=== PATIENT | female | born 1950 | race Caucasian/White ===

== ENCOUNTER 2018-03-09 09:44 | Inpatient (IN) ==
[2018-03-09] MEDS ORDERED: Acetaminophen 325 MG Tablet PO PRN ×2 (16:40→17:00)
[2018-03-09] MEDS ORDERED: Sod Chloride 0.9% Inj 1,000 ML IV.CONT PRN (17:00)
[2018-03-09] MEDS ORDERED: Gelatin 12 MM/7 MM Topical Foam TOPICAL PRN (17:00)
[2018-03-09] MEDS ORDERED: Albumin Human 25% Inj 100 ML IV.SIG PRN (17:00)
[2018-03-09] MEDS ORDERED: Heparin 10,000 UNITS/10 ML Vial (for IV use) OTHER PRN ×2 (17:00)
[2018-03-09] MEDS ORDERED: Azithromycin Inj 500 MG in Sodium Chlor 0.9% Inj 250 ML IV.SIG SCH (17:00)
[2018-03-09] MEDS ORDERED: Sod Chloride 0.9% Inj 1,000 ML OTHER PRN ×2 (17:00)
--- NOTE | 2018-03-09 17:51 | P.HPIM ---
History of Present Illness Primary Care Physician: UNKNOWN Chief Complaint: Shortness of breath History of Present Illness: Mrs. Henderson is a 67-year-old female. She has COPD at baseline. She continues to smoke about 1/2 pack/day. She says starting 3 days ago she was having worsening shortness of breath. If may be possible as she cites 3 sick contacts. No other complaints today. No chest pain. She did miss her dialysis 2 days ago and this could be contributory to her shortness of breath. However, clinically she does not have a significant amount of fluid overload. At baseline she does not use oxygen. At this point she is oxygen dependent due to her COPD exacerbation. No nausea, vomiting, or fever. Review of Systems Constitutional: No fevers, no chills no night sweats, no fatigue, no weakness Eyes: No eye pain, no blurry vision, no loss of vision ENT: No sore throat, no ear pain, no rhinorrhea Cardiovascular: No chest pain, no tachycardia, no palpitations, no syncope Respiratory: No wheezing, no cough, shortness of breath Gastrointestinal: No abdominal pain, no black tarry stools, no bright red blood per rectum, no vomiting, no diarrhea Musculoskeletal: No joint pain, no muscle cramps, no stiffness Integumentary: No rash, no ulcers, no drainage Neurologic: No sensory loss, no loss of motor function, no dizziness Psychiatric: No behavioral changes, no hallucinations, no suicidal ideations [facility] Medical History Medical History Cirrhosis (Acute) Diabetes (Acute) GERD (gastroesophageal reflux disease) (Acute) History of COPD (Acute) Hypertension (Acute) Hypothyroidism (Acute) Surgical History Surgical History History of quadruple bypass (Acute) Hx of section (Acute) Hx of cholecystectomy (Acute) Hx of heart artery stent (Acute) Hx of tonsillectomy (Acute) Hx of umbilical hernia repair (Acute) S/P TIPS (transjugular intrahepatic portosystemic shunt) (Acute) Family History Family History Other Osteoarthritis Social History Social History Substance History: No History of Abuse Second Hand Smoke Exposure: Yes Smoking Status: Current every day smoker Tobacco Type: Cigarettes How Often Do You Have a Drink Containing Alcohol: Never Medications and Allergies Allergies Allergy/AdvReac Type Severity Reaction Status Date / Time Penicillins Allergy Hives Verified 03/09/18 10:24 artifical sweetner Allergy Swelling Uncoded 03/09/18 10:24 of Lip/Tongue/Throat Home Medications Medication Instructions Recorded Confirmed Type B complex-vitamin C-folic acid 1 tab PO DAILY 03/09/18 03/09/18 History [Dialyvite 800] Caltrate Gummy Bites 600 mg PO BID 03/09/18 03/09/18 History carvedilol 6.25 mg PO BID 03/09/18 03/09/18 History cetirizine [Zyrtec] 10 mg PO DAILY 03/09/18 03/09/18 History ciprofloxacin HCl [Cipro] 500 mg PO WEEKLY 03/09/18 03/09/18 History cyclobenzaprine 5 mg PO TID PRN 03/09/18 03/09/18 History doxepin 10 mg PO DAILY PRN 03/09/18 03/09/18 History hydralazine 25 mg PO AC DINNER 03/09/18 03/09/18 History insulin detemir U-100 [Levemir 60 mg SUBCUT HS 03/09/18 03/09/18 History FlexTouch U-100 Insuln] levothyroxine 88 mcg PO DAILY 03/09/18 03/09/18 History magnesium 250 mg PO TID 03/09/18 03/09/18 History pantoprazole [Protonix] 40 mg PO DAILY 03/09/18 03/09/18 History pravastatin 10 mg PO HS 03/09/18 03/09/18 History Active Medications: Active Medications Acetaminophen (Tylenol) 650 mg PO Q4H PRN PRN Reason: Temp > 100.4 Acetaminophen (Tylenol) 650 mg PO UNSCH PRN PRN Reason: SEE LABEL COMMENTS Al Hydroxide/Mg Hydroxide (Milk Of Silverio Bach) 30 ml PO Q12H PRN PRN Reason: Mild Constipation Albuterol (Albuterol Neb (Prn)) 2.5 mg NEB Q2HR NEB PRN PRN Reason: SHORTNESS OF BREATH Albuterol (Duoneb Neb (Karen)) 1 ampul NEB Q6HR WHILE AWAKE NEB KAREN Clonidine HCl (Catapres) 0.1 mg PO UNSCH PRN PRN Reason: SEE LABEL COMMENTS Diphenhydramine HCl (Benadryl) 25 mg PO UNSCH PRN PRN Reason: SEE LABEL COMMENTS Epoetin Kaveh (Epogen Inj) 8,000 unit SQ MoWeFr KAREN Gelatin (Gelfoam 12 Mm/7 Mm Topical) 1 foam TOPICAL PRN PRN PRN Reason: help stop bleeding from site Gentamicin Sulfate (Gentamicin Inj) 20 mg OTHER WITH DIALYSIS PRN PRN Reason: Dwell Gentamycin Lock Heparin Sodium (Porcine) (Heparin Inj) 8,000 units OTHER WITH DIALYSIS PRN PRN Reason: for machine prime Heparin Sodium (Porcine) (Heparin Inj) 1,000 units OTHER WITH DIALYSIS PRN PRN Reason: Dwell Heparin to Fill Catheter Azithromycin 500 mg/ Sodium (Chloride) 250 mls @ 250 mls/hr IV.SIG Q24H KAREN Albumin Human (Flexbumin 25% Inj) 100 mls @ 60 mls/hr IV.SIG WITH DIALYSIS PRN PRN Reason: hypotension / volume replace Sodium Chloride (Ns Inj) 1,000 mls @ 0 mls/hr OTHER .Q0M PRN PRN Reason: for prime and rinse back Sodium Chloride (Ns Inj) 1,000 mls @ 200 mls/hr OTHER .Q5H PRN PRN Reason: for dialyzer flush PRN Sodium Chloride (Ns Inj) 1,000 mls @ 0 mls/hr IV.CONT .Q0M PRN PRN Reason: hypotension / volume replace Mannitol (Mannitol Inj) 12.5 gm IV.PUSH UNSCH PRN PRN Reason: hypotension / volume replace Nitroglycerin (Nitrostat Sl) 0.4 mg SL Q5M PRN PRN Reason: CHEST PAIN Ondansetron HCl (Zofran Inj) 4 mg IV.PUSH Q6H PRN PRN Reason: NAUSEA OR VOMITING Prednisone (Deltasone) 40 mg PO BID KAREN Sodium Chloride (Ns Flush) 2 ml IV.FLUSH BID KAREN Sodium Chloride (Ns Flush) 2 ml IV.FLUSH PRN PRN PRN Reason: FLUSH AFTER USING IV ACCESS Sodium Chloride (Ns Flush) 2 ml IV.FLUSH BID KAREN Sodium Chloride (Ns Flush) 2 ml IV.FLUSH PRN PRN PRN Reason: FLUSH AFTER USING IV ACCESS Sodium Chloride (Ns Flush) 5 ml IV.FLUSH PRN PRN PRN Reason: flush each lumen during HD Physical Exam Vital signs: Last Vital Signs Temp 98.5 F 03/09/18 16:03 Pulse 78 03/09/18 16:03 Resp 20 03/09/18 16:03 BP 148/67 H 03/09/18 16:03 Pulse Ox 97 03/09/18 16:03 Intake & Output 03/07/18 03/08/18 03/09/18 03/10/18 06:59 06:59 06:59 06:59 Weight 107.1 kg Narrative: GENERAL: NAD, A&Ox3 HEAD: Normocephalic. NECK: Supple, trachea midline. No lymphadenopathy. EYES: No scleral icterus. No injection or drainage. CARDIOVASCULAR: Regular rate and rhythm without murmurs, gallops, or rubs. RESPIRATORY: Breath sounds equal bilaterally. No accessory muscle use. Trace crackles at bases, wheezing at bases. GASTROINTESTINAL: Abdomen soft, non-tender, nondistended. MUSCULOSKELETAL: No cyanosis, or edema. SKIN: Warm and dry. NEURO: No focal neurological deficits. Caprini VTE Risk Assessment Caprini VTE Risk Assessment: No/Low Risk (score <= 1) Caprini Risk Assessment Model: Point Value = 1 Point Value = 2 Point Value = 3 Point Value = 5 Age 41-60 Minor surgery BMI > 25 kg/m2 Swollen legs Varicose veins or History of unexplained or recurrent spontaneous Oral contraceptives or hormone replacement Sepsis (< 1 month) Serious lung disease, including pneumonia (< 1 month) Abnormal pulmonary function Acute myocardial infarction Congestive heart failure (< 1 month) History of inflammatory bowel disease Medical patient at bed rest Age 61-74 Arthroscopic surgery Major open surgery (> 45 min) Laparoscopic surgery (> 45 min) Malignancy Confined to bed (> 72 hours) Immobilizing plaster cast Central venous access Age >= 75 History of VTE Family history of VTE Factor V Leiden Prothrombin [id number] Lupus anticoagulant Anticardiolipin antibodies Elevated serum homocysteine Heparin-induced thrombocytopenia Other congenital or acquired thrombophilia Stroke (< 1 month) Elective arthroplasty Hip, pelvis, or leg fracture Acute spinal cord injury (< 1 month) Prophylaxis Regimen: Total Risk Factor Score Risk Level Prophylaxis Regimen 0-1 Low Early ambulation 2 Moderate Order ONE of the following: *Sequential Compression Device (SCD) *Heparin 5000 units SQ BID 3-4 Higher Order ONE of the following medications: *Heparin 5000 units SQ TID *Enoxaparin/Lovenox 40 mg SQ daily (WT < 150 kg, CrCl > 30 mL/min) *Enoxaparin/Lovenox 30 mg SQ daily (WT < 150 kg, CrCl > 10-29 mL/min) *Enoxaparin/Lovenox 30 mg SQ BID (WT < 150 kg, CrCl > 30 mL/min) AND/OR *Sequential Compression Device (SCD) 5 or more Highest Order ONE of the following medications: *Heparin 5000 units SQ TID (Preferred with Epidurals) *Enoxaparin/Lovenox 40 mg SQ daily (WT < 150 kg, CrCl > 30 mL/min) *Enoxaparin/Lovenox 30 mg SQ daily (WT < 150 kg, CrCl > 10-29 mL/min) *Enoxaparin/Lovenox 30 mg SQ BID (WT < 150 kg, CrCl > 30 mL/min) AND *Sequential Compression Device (SCD) Assessment and Plan Plan 67-year-old female admitted secondary to COPD exacerbation COPD exacerbation Continue oxygen supplements as needed Schedule duo nebs When necessary albuterol Azithromycin Systemic steroids Follow for improvement in respiratory status Follow for improvement in exertional tolerance next End-stage renal disease Dialysis dependent Missed dialysis Patient in dialysis when seen She will receive another dialysis tomorrow Monitor renal function Follow clinically Diabetes mellitus type 2 Follow blood sugars Insulin sliding scale Diabetic diet Hypertension Continue baseline treatment Follow blood pressures Adjust treatments as needed Hypothyroidism Continue baseline treatments Follow-up as an outpatient Gastroesophageal reflux disease Continue baseline treatments H&P: Quality VTE Deep Vein Thrombosis/Pulmonary Embolism Present on Admission: No
[2018-03-09] MEDS ORDERED: Dextrose 50% in Water 50 ML Vial IV.PUSH PRN (17:53)
--- NOTE | 2018-03-09 18:13 | MB ---
cc: Hector Benavides MD DATE: 03/09/2018 REASON FOR CONSULTATION: End-stage renal disease management. HISTORY OF PRESENT ILLNESS: This is a 67-year-old female with history of end-stage renal disease. She is on dialysis in [place] and follows up with Dr. Higginbotham on a Sunday, Sunday, Sunday dialysis schedule. She has been on dialysis for approximately 2 years and uses a right upper arm AV graft for AV access. The patient got a full treatment on Sunday. However, started to feel somewhat fatigued after her treatment. She developed some cough and shortness of breath. She has a longstanding history of COPD and is a current 1/2-lqpy-orf-day smoker. The patient believes she may have caught some sort of respiratory infection and developed shortness of breath. She missed her hemodialysis treatment yesterday and went to the emergency room in [place] earlier today. There, she was assessed and thought to have possible pneumonia versus COPD exacerbation. In addition, she had missed her last hemodialysis treatment. She was transferred here to the [facility]. At this time, the patient is resting in bed comfortably. We have restarted dialysis here, and she is tolerating dialysis via her right upper arm AV graft. She reports she is having some improvement in her shortness of breath, and she did receive 2 respiratory treatments over at [place] ER. At this time, she is resting comfortably and has no acute complaints. Nephrology was consulted for further evaluation. REVIEW OF SYSTEMS: The patient denies any chest pains. She does have some mild shortness of breath with chronic underlying COPD. She did have some cough with sputum earlier as well. No nausea, no vomiting, no diarrhea. No chest pains. No dysuria, no headaches. No dizziness. No loss of consciousness. Otherwise, review of systems negative. PAST MEDICAL HISTORY: Cirrhosis secondary to medications, diabetes with insulin dependence, GERD, COPD, current 1/1-bwbs-myp-day smoker, hypertension, hypothyroidism. PAST SURGICAL HISTORY: Quadruple bypass, , cholecystectomy, coronary stent, tonsillectomy, umbilical hernia repair, TIPS surgery for cirrhosis, right upper arm AV graft. SOCIAL HISTORY: The patient is a current 1/6-rxac-put-day smoker. Previous social alcohol use. No drug use. The patient lives at home in [place]. FAMILY HISTORY: Noncontributory. PHYSICAL EXAMINATION: VITAL SIGNS: At time of evaluation, temperature 98.5, pulse 78, respiratory rate 20, blood pressure 148/67, respiratory rate 20, pulse oximetry 97% on 3L nasal cannula. GENERAL: Awake, alert, oriented. NECK: Soft, supple. CARDIAC: Regular rate and rhythm. PULMONARY: Mild wheezes. Decreased breath sounds at bases. ABDOMEN: Soft, nontender, nondistended. EXTREMITIES: No edema. Right upper arm AV graft positive thrill. LABORATORY FINDINGS: White count 6.8, hemoglobin 8.9, hematocrit 27, platelet count of 84. Sodium 143, potassium 4.3, chloride 109, bicarbonate 26, BUN 61, creatinine 4.1, glucose 137. ASSESSMENT AND PLAN: 1. End-stage renal disease. The patient is on hemodialysis Sunday, Sunday, and Sunday. She missed 1 treatment secondary to shortness of breath at home. She is being seen on dialysis here today and is tolerating dialysis well. We will do ultrafiltration as tolerated. At this time, her volume status and electrolytes are otherwise stable. We will do ultrafiltration as tolerated. Given the holiday schedule, we will do hemodialysis again on Sunday and then next dialysis on Sunday. If the patient is discharged after treatment tomorrow, she can continue outpatient dialysis on Sunday as an outpatient. We will continue to monitor. Continue renally dose medications and antibiotics. 2. The patient is a current 1/8-nkqz-bqw-day smoker. Encouraged the patient to quit smoking. She is a long-term smoker and has cut down from 1-1/2 packs per day in the past. She did receive 2 breathing treatments earlier in the ER for apparent chronic obstructive pulmonary disease exacerbation. Continue followup with primary team. Chest x-ray was negative for any other findings. However, the patient has had some cough with sputum. Continue to monitor with antibiotics as needed. 3. Hypertension. Blood pressure is stable. Continue with medication. 4. Insulin-dependent diabetes. Continue with medications. 5. Anemia. The patient with hemoglobin 8.9. Continue to monitor. We will give Epogen as needed. 6. History of coronary artery disease, status post coronary artery bypass grafting. Continue with medications. No cardiac symptoms at this time. 7. Cirrhosis. The patient has a history of cirrhosis with previous transjugular intrahepatic portosystemic shunt surgery. She reports she had been under consideration for liver transplant. However, she refused. She has slightly low platelets at 84. Continue to monitor. Otherwise stable. MD BRIAN Bhatti/gaston , 05:21 PM , 05:29 PM
[2018-03-09] MEDS ORDERED: Insulin Detemir Inj 1,000 UNIT/10 ML Vial SQ SCH (21:00)
[2018-03-09] MEDS: predniSONE 20 MG Tablet PO SCH (21:31)
[2018-03-09] MEDS: Carvedilol 6.25 MG Tablet PO SCH (21:31)
[2018-03-09] MEDS: Magnesium Oxide 400 MG Tablet PO SCH (21:57)
[2018-03-09] MEDS: Insulin NovoLOG Aspart Correctional Sugar Inj SQ SCH (23:46)
[2018-03-10 05:38] LABS: Baso % (Auto) 0.1 % (0.0-2.0); Hematocrit 23.7 % (35.0-46.0); Hemoglobin 8.1 gm/dL (11.6-15.3); Lymph # (Auto) 0.5 th/mm3 (1.0-4.8); Lymph % (Auto) 14.2 % (9.0-44.0); Mean Corpuscular HGB Conc 34.2 % (32.0-36.0); Mean Corpuscular Hemoglobin 31.9 pg (27.0-34.0); Mean Corpuscular Volume 93.3 fL (80.0-100.0); Mean Platelet Volume 8.3 fL (7.0-11.0); Mono # (Auto) 0.2 th/mm3 (0.0-0.9); Mono % (Auto) 4.5 % (0.0-8.0); Neut # (Auto) 3.1 th/mm3 (1.8-7.7); Neut % (Auto) 81.2 % (16.0-70.0); Platelet Count 73 th/mm3 (150-450); Red Blood Count 2.54 mil/mm3 (4.00-5.30); Red Cell Distribution Width 17.6 % (11.6-17.2); White Blood Count 3.9 th/mm3 (4.0-11.0)
[2018-03-10] MEDS ORDERED: Levothyroxine 88 MCG Tablet PO SCH (06:00)
[2018-03-10 06:05] LABS: Alanine Aminotransferase 15 U/L (10-53); Albumin 2.7 g/dL (3.4-5.0); Anion Gap 10 meq/L (5-15); Aspartate Aminotransferase 21 U/L (15-37); Blood Urea Nitrogen 47 mg/dL (7-18); Calcium 7.5 mg/dL (8.5-10.1); Carbon Dioxide 28.5 meq/L (21.0-32.0); Chloride 101 meq/L (98-107); Glomerular Filtration Rate 12 mL/min (>89); Glucose,Random 299 mg/dL (74-106); Magnesium 2.1 mg/dL (1.5-2.5); Potassium 3.9 meq/L (3.5-5.1); Sodium 139 meq/L (136-145)
[2018-03-10 06:06] LABS: Alkaline Phosphatase 154 U/L (45-117); Total Protein 6.3 g/dL (6.4-8.2)
[2018-03-10] MEDS ORDERED: LEVOTHYROXINE 88 MCG PO SCH (09:00)
[2018-03-10] MEDS ORDERED: Vitamin B Complex/Vit C/Folic Tablet PO SCH (09:00)
--- NOTE | 2018-03-10 10:33 | P.PNNP ---
Subjective Interval history: no acute complaints, seen on dialysis and tolerating it well Physical Exam Vital signs: Vital Signs 03/09/18 16:03 03/09/18 20:00 03/09/18 22:03 Temperature 98.5 F 97.4 F L Pulse Rate 78 82 84 Respiratory Rate 20 20 16 Blood Pressure 148/67 H 133/62 Pulse Oximetry 97 99 97 03/09/18 23:50 03/10/18 00:00 03/10/18 04:00 Temperature 97.4 F L 97.0 F L Pulse Rate 87 78 Respiratory Rate 20 20 20 Blood Pressure 108/57 L 113/54 L Pulse Oximetry 98 99 03/10/18 07:52 Temperature Pulse Rate 80 Respiratory Rate 16 Blood Pressure Pulse Oximetry 97 Intake & Output 03/09/18 03/10/18 03/10/18 18:59 06:59 18:59 Intake Total 250 / 250 Output Total 1500 / 1500 Balance -1250 / -1250 Weight 107.1 kg Intake: IV 250 / 250 Azithromycin Inj 500 MG In NS 250 / 250 Inj 250 ML @ 250 mls/hr IV.SIG Q24H KURTIS Rx#:[id number] Output: Hemodialysis Amount 1500 / 1500 Other: Date of Last Bowel Movement 03/09/18 Weight On Admission 107.1 kg - Constitutional no acute distress - Routine HEENT Exam Head: Present: normocephalic Eye: Present: EOMI ENT: Present: mucous membranes moist - Routine Neck Exam Present: supple - Routine Respiratory Exam Present: decreased breath sounds - Routine Cardiovascular Exam Present: RRR - Routine Abdominal Exam Present: soft - Routine Skin Exam Present: intact - Routine Neurological Exam Present: alert, oriented X3 - Routine Psychiatric Exam Present: normal affect Assessment and Plan - Assessment (1) ESRD (end stage renal disease) on dialysis Code(s): N18.6 - End stage renal disease; Z99.2 - Dependence on renal dialysis Status: Acute Plan: ESRD - MWF schedule outpatient. Missed HD Sunday - HD done yesterday with 1.5L UF HD again today, goal 1.5 L UF. Tolerating HD well. With holiday schedule, next HD Sunday (outpatient if D/C) Feeling better today, would like to go home soon if able. (2) COPD (chronic obstructive pulmonary disease) Code(s): J44.9 - Chronic obstructive pulmonary disease, unspecified Status: Acute Plan: Current smoker, encouraged cessation on steroids, azithromycin - feeling better today (3) HTN (hypertension) Code(s): I10 - Essential (primary) hypertension Status: Acute (4) Diabetes Code(s): E11.9 - Type 2 diabetes mellitus without complications Status: Acute Plan: continue insulin (5) Anemia Code(s): D64.9 - Anemia, unspecified Status: Acute Plan: epogen with dialysis (6) Cirrhosis Code(s): K74.60 - Unspecified cirrhosis of liver Status: Acute Plan: stable, s/p TIPS, refused transplant.
[2018-03-10] MEDS: Insulin NovoLOG Aspart Correctional Sugar Inj SQ SCH ×2 (12:19→13:40)
[2018-03-10] MEDS: predniSONE 20 MG Tablet PO SCH (12:30)
[2018-03-10] MEDS: Magnesium Oxide 400 MG Tablet PO SCH (12:30)
[2018-03-10] MEDS: Carvedilol 6.25 MG Tablet PO SCH (12:31)
[2018-03-10 12:46] VITALS: BP 147/59; PULSE 75; TEMP 98.8
--- NOTE | 2018-03-10 13:34 | P.DS ---
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 Admit from [facility] with COPD exacerbation. Notified:: Service Spoke with:: BRADEN Date Notified:: 03/09/18 Time Notified:: 17:07 Ordering Provider: TORITO Brief History from admission: Mrs. Henderson is a 67-year-old female. She has COPD at baseline. She continues to smoke about 1/2 pack/day. She says starting 3 days ago she was having worsening shortness of breath. If may be possible as she cites 3 sick contacts. No other complaints today. No chest pain. She did miss her dialysis 2 days ago and this could be contributory to her shortness of breath. However, clinically she does not have a significant amount of fluid overload. At baseline she does not use oxygen. At this point she is oxygen dependent due to her COPD exacerbation. No nausea, vomiting, or fever. DS: Diagnosis Discharge Diagnosis (1) ESRD (end stage renal disease) on dialysis: Status: Acute (2) COPD (chronic obstructive pulmonary disease): Status: Acute (3) HTN (hypertension): Status: Acute (4) Diabetes: Status: Acute (5) Anemia: Status: Acute (6) Cirrhosis: Status: Acute DS: Summary Patient was admitted and seen by nephrology, and sent for dialysis because she had missed her scheduled dialysis, she was dialyzed today as well. Tolerated the procedure well, had improvement in her shortness of breath, was weaned off of oxygen, satting 94% on room air. Patient still had productive cough and some mild congestion on exam but was breathing much better stable on room air and otherwise clinically stable for discharge home and outpatient follow-up. I had a lengthy discussion with the patient regarding diet compliance, adjustment of her home insulin for worsening blood sugars controlled due to steroid use, as well as discussed dietary compliance. We also discussed tobacco cessation, patient is stable for discharge and outpatient follow-up. Discharge diagnosis Acute hypoxic respiratory failure Acute volume overload pulmonary edema related to missed dialysis, medical noncompliance s/p urgent dialysis Acute exacerbation COPD with suspected bacterial respiratory infection Hypertension Insulin-dependent diabetes uncontrolled End-stage renal disease on dialysis Cirrhosis s/p TIPS Anemia chronic TOBACCO abuse, nicotine addiction Hypothyroidism morbid obesity BMI 40 Time spent discussing smoking cessation with patient: 3 to 10 minutes Time Spent with Patient Total time spent providing and/or coordinating discharge services: Greater than 30 minutes Status at Discharge Overall status at discharge: patient is progressing back to baseline Quality: VTE Deep Vein Thrombosis/Pulmonary Embolism Present on Admission: No Exam Narrative Exam Narrative: Vitals temp 98.8 pulse 75 respirations 16 O2 sat 97% 2 L NC, 147 /59 Pleasant well-developed well-nourished 67-year-old female Awake alert oriented no acute distress fluent speech without respiratory distress Heart S1-S2 regular Lungs full symmetric expansion, no wheeze, coarse rales right base Abdomen soft nondistended positive bowel sounds Extremities no clubbing cyanosis no edema Results Labs on day of discharge: Labs from last 24 hours 03/10/18 03/10/18 03/10/18 12:28 11:13 08:20 WBC RBC Hgb Hct MCV MCH MCHC RDW Plt Count MPV Prelim Diff (Auto) Neut % (Auto) Lymph % (Auto) [place] % (Auto) Eos % (Auto) Baso % (Auto) Neut # (Auto) Lymph # (Auto) [place] # (Auto) Eos # (Auto) Baso # (Auto) WBC Differential Diff Scan Differential Comment Sodium Potassium Chloride Carbon Dioxide Anion Gap BUN Creatinine Estimated GFR POC Glucose 166 H 146 H 301 H Random Glucose Calcium Phosphorus Magnesium Total Bilirubin AST ALT Alkaline Phosphatase Total Protein Albumin 03/10/18 03/10/18 03/09/18 04:56 04:56 23:31 WBC 3.9 L RBC 2.54 L Hgb 8.1 L Hct 23.7 L MCV 93.3 D MCH 31.9 MCHC 34.2 RDW 17.6 H Plt Count 73 L MPV 8.3 Prelim Diff (Auto) Slide review pending Neut % (Auto) 81.2 H Lymph % (Auto) 14.2 [place] % (Auto) 4.5 Eos % (Auto) 0.0 Baso % (Auto) 0.1 Neut # (Auto) 3.1 Lymph # (Auto) 0.5 L [place] # (Auto) 0.2 Eos # (Auto) 0.0 Baso # (Auto) 0.0 WBC Differential . Diff Scan Auto diff confirmed Differential Comment . Sodium 139 Potassium 3.9 Chloride 101 D Carbon Dioxide 28.5 Anion Gap 10 BUN 47 H Creatinine 3.66 H Estimated GFR 12 L POC Glucose 447 H Random Glucose 299 H D Calcium 7.5 L Phosphorus 5.0 H Magnesium 2.1 Total Bilirubin 0.8 AST 21 ALT 15 Alkaline Phosphatase 154 H Total Protein 6.3 L Albumin 2.7 L 03/09/18 03/09/18 22:04 19:17 WBC RBC Hgb Hct MCV MCH MCHC RDW Plt Count MPV Prelim Diff (Auto) Neut % (Auto) Lymph % (Auto) [place] % (Auto) Eos % (Auto) Baso % (Auto) Neut # (Auto) Lymph # (Auto) [place] # (Auto) Eos # (Auto) Baso # (Auto) WBC Differential Diff Scan Differential Comment Sodium Potassium Chloride Carbon Dioxide Anion Gap BUN Creatinine Estimated GFR POC Glucose 340 H 188 H Random Glucose Calcium Phosphorus Magnesium Total Bilirubin AST ALT Alkaline Phosphatase Total Protein Albumin Discharge Plan Discharge Disposition Patient Disposition: 01 Discharge Home Discharge Condition Condition: Stable Discharge Order Discharge Orders: Discharge Order (Routine); Ordered 03/10/18 Ordered By: Janay Merritt Physicians Team ED Provider: Ryan Ruiz Primary Care Provider: UNKNOWN, Attending Provider: Janay Merritt Other Providers: Hector Benavides V Rxs /Orders / Referrals /Forms Prescriptions: New prednisone 20 mg Tablet 10 mg PO BID Qty: 15 RF: 0 azithromycin 250 mg tablet 250 mg PO DAILY 4 Days Qty: 4 RF: 0 Continue carvedilol 6.25 mg Tablet 6.25 mg PO BID RF: 0 cetirizine [Zyrtec] 10 mg Tablet 10 mg PO DAILY RF: 0 hydralazine 25 mg Tablet 25 mg PO AC DINNER RF: 0 doxepin 10 mg Capsule 10 mg PO DAILY PRN (Reason: Itching) RF: 0 ciprofloxacin HCl [Cipro] 500 mg Tablet 500 mg PO WEEKLY RF: 0 pravastatin 10 mg Tablet 10 mg PO HS RF: 0 pantoprazole [Protonix] 40 mg Tablet,Delayed Release (Dr/Ec) 40 mg PO DAILY RF: 0 B complex-vitamin C-folic acid [Dialyvite 800] 0.8 mg Tablet 1 tab PO DAILY RF: 0 magnesium 250 mg Tablet 250 mg PO TID RF: 0 cyclobenzaprine 5 mg Tablet 5 mg PO TID PRN (Reason: Muscle Pain) RF: 0 levothyroxine 88 mcg Capsule 88 mcg PO DAILY RF: 0 Caltrate Gummy Bites 600 mg PO BID RF: 0 Changed insulin detemir U-100 [Levemir FlexTouch U-100 Insuln] 100 unit/mL (3 mL) Insulin Pen 60 mg subcut BIDAC Qty: 500 RF: 0 Referrals: Hector Benavides MD [Physician] - See Instructions ( Please call the physician's office to book the appointment to be seen within [2d]. Please call PCP physician's office to book the appointment to be seen within [1 wk]. resume dialysis as scheduled on SUN as instructed) UNKNOWN, [Primary Care Provider] - See Instructions Status ED Status: Admitted Observation Patient
[2018-03-10 14:19] VITALS: RESP 18; O2SAT 94
== END 2018-03-10 16:37 | disposition home or self-care (01) ==
LOC: NEPGCP 09:44 → NEDDLT 09:44
PROVIDERS: ADMIT Internal Medicine; ATTEND Internal Medicine